=== PATIENT | female | born 2000 | race Two or more races ===

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

== ENCOUNTER 2020-10-06 14:29 | Emergency (ER) | payer SELFPAY ==
[~2020-10-06] VITALS: Ht 160 cm; Wt 63.5 kg
[2020-10-06 14:30] VITALS: BP 109/70
[2020-10-06] MEDS ORDERED: cefTRIAXone SOD 1,000 MG VL IM ONE (16:15)
[2020-10-06] MEDS ORDERED: ONDANSETRON HCL 4 MG/2 ML VIAL IM ONE (16:15)
== END 2020-10-06 18:10 | disposition home or self-care (01) ==
LOC: ER 14:29
DX: K52.9 Noninfective gastroenteritis and colitis, unspecified (principal); J03.90 Acute tonsillitis, unspecified; R11.2 Nausea with vomiting, unspecified; Z20.822 Contact with and (suspected) exposure to COVID-19
CPT/HCPCS: 36415; 71045; 87426; 96372; 99284; J0696; J2405

== ENCOUNTER 2024-01-14 02:12 | Inpatient (IN) | payer OTHER ==
[~2024-01-14] VITALS: Ht 162.6 cm; Wt 63.5 kg
[2024-01-14] MEDS ORDERED: BUTORPHANOL TARTRATE 2 MG/1 ML VIAL IV PRN ×2 (02:30)
[2024-01-14] MEDS ORDERED: LIDOCAINE 2%HCL (LOCAL ANESTH.) INJ 20ML MDV IJ PRN (02:30)
[2024-01-14 03:05] LABS: Basophils # (auto) 0 10 ^3/uL (0-0.2); Basophils % (auto) 0.2 % (0.0-2.0); Eosinophils # (auto) 0 10 ^3/uL (0-0.8); Eosinophils % (auto) 0.6 % (0.0-7.0); Hematocrit 32.6 % (36.0-46.0); Lymphocytes # (auto) 1.2 10 ^3/uL (0.4-5.4); Lymphocytes % (auto) 15.8 % (10.0-50.0); Mean Corpuscular Hemoglobin 30.3 pg (28.0-32.0); Mean Corpuscular Hgb Conc. 33.9 g/dL (32.0-36.0); Mean Corpuscular Volume 89.5 fL (80.0-100.0); Monocytes # (auto) 0.5 10 ^3/uL (0-1.3); Monocytes % (auto) 7.3 % (0.0-12.0); Neutrophils # (auto) 5.6 10 ^3/uL (1.6-8.6); Neutrophils % (auto) 76.1 % (37.0-80.0); Red Blood Cells 3.64 10^6/uL (4.0-5.20); Red Cell Distribution Width 14.3 % (11.8-14.3); White Blood Cell 7.3 10^3/uL (4.4-10.8)
[2024-01-14 03:20] LABS: INR 0.91 (0.9-1.15); Partial Thromboplastin Time 24.7 SEC (24.5-34.5); Prothrombin Time 9.7 sec (9.3-11.8)
[2024-01-14 03:23] LABS: Amphetamine Screen, Urine Neg (NEGATIVE); Barbiturate Scree,Urine Neg (NEGATIVE); Benzodiazephine Screen, Urine Neg (NEGATIVE); Cannabinoid Screen, Urine Pos (NEGATIVE); Cocaine Screen, Urine Neg (NEGATIVE); Opiate Scree,Urine Neg (NEGATIVE); Phencyclidine Screen, Urine Neg (NEGATIVE)
[2024-01-14 03:26] LABS: Urine Amorphous Crystal FEW /hpf (None Seen); Urine Bacteria FEW /hpf (None Seen); Urine Blood Negative /uL (Negative); Urine Clarity Clear (Clear); Urine Color Light-Yellow (Yellow); Urine Protein, UAD Negative (Negative); Urine Specific Gravity 1.013 (1.001-1.035); Urine Urobilinogen Normal (Negative); Urine WBC <1 /hpf (0 - 5)
[2024-01-14 03:28] LABS: Alanine Aminotransferase 10 U/L (7-40); Albumin 3.5 g/dL (3.2-4.8); Alkaline Phosphatase 261 U/L (46-116); Anion Gap 10 (5-15); Aspartate Aminotransferase < 8 U/L (13-40); BUN/Creatinine Ratio 11.1 (10.0-20.0); Blood Urea Nitrogen 7 mg/dL (9-23); Calcium 8.8 mg/dL (8.7-10.4); Carbon Dioxide 22 mmol/L (20-30); Chloride 105 mmol/L (98-107); Glucose 104 mg/dL (74-106); Potassium 3.6 mmol/L (3.5-5.1); Sodium 137 mmol/L (136-145)
[2024-01-14 03:29] LABS: Bilirubin, Total 0.3 mg/dL (0.2-1.0); Total Protein 5.8 g/dL (5.7-8.2)
[2024-01-14] MEDS: LACTATED RINGER'S 1,000 ML IV SCH (03:34)
[2024-01-14] MEDS: PENICILLIN G POT 5MIL/D5 50ML 50 ML IV ONE (03:46)
[2024-01-14] MEDS: ONDANSETRON HCL 4 MG/2 ML VIAL IV ONE (05:35)
[2024-01-14] MEDS: NALBUPHINE HCL 10 MG/1ml INJECTION IV PRN (05:52)
[2024-01-14] MEDS: NALOXONE HCL 0.4 MG/ML VIAL IV ONE (06:30)
[2024-01-14] MEDS ORDERED: PENICILLIN G POTASSIUM 2,500,000 UNITS in D5W 5% 50 ML IV SCH ×2 (06:30→12:30)
[2024-01-14] MEDS: ePHEDrine SULFATE 50 MG/ML AMP IV ONE (06:30)
[2024-01-14] MEDS: ROPIVACAINE HCL 200 ML ONE (07:59)
[2024-01-14] MEDS: LACTATED RINGER'S 1,000 ML IV ONE (08:19)
[2024-01-14] MEDS: PENICILLIN G POTASSIUM 2,500,000 UNITS in D5W 5% 50 ML IV SCH (08:24)
[2024-01-14] MEDS: LACT. RINGERS/OXYTOCIN 20UNITS 1,000 ML IV SCH (08:30)
[2024-01-14] MEDS: DERMOPLAST 60ML BOTTLE TOP PRN (11:21)
[2024-01-14] MEDS: WITCH HAZEL-GLYCERIN PAD TOP PRN (11:21)
[2024-01-14] MEDS: PHISODERM TOP SOLN 240ML BTL TOP PRN (11:21)
[2024-01-14] MEDS: LACT. RINGERS/OXYTOCIN 20UNITS 500 ML IV ONE ×2 (13:37→13:38)
[2024-01-14] MEDS: ONDANSETRON HCL 4 MG/2 ML VIAL IV PRN (13:58)
[2024-01-14] MEDS: ALBUTEROL SULF HFA 90MCG INH 200DOSE IN SCH (14:00)
[2024-01-14] MEDS: ceFAZolin 1GM/50ML 50 ML IV SCH (16:05)
[2024-01-14 19:00] VITALS: BP 115/68; PULSE 93; RESP 16; TEMP 97.3; O2SAT 95
[2024-01-14] MEDS: IBUPROFEN 600 MG TAB PO PRN (20:06)
[2024-01-14 23:00] VITALS: BP 113/64; PULSE 93; RESP 14; TEMP 98.6; O2SAT 94
[2024-01-14] MEDS ORDERED: IBU600T PO (23:42)
[2024-01-14] MEDS ORDERED: DOCU-94 PO (23:42)
[2024-01-14] MEDS ORDERED: FER325T PO (23:42)
[2024-01-14] MEDS ORDERED: PREN-96 PO (23:42)
[2024-01-15] MEDS: DOCUSATE SOD 100 MG CAP PO PRN (00:56)
[2024-01-15] MEDS: ACETAMINOPHEN 325 MG TAB PO PRN (00:57)
[2024-01-15 03:27] VITALS: BP 120/58; PULSE 77; RESP 14; TEMP 98.3; O2SAT 100
[2024-01-15] MEDS ORDERED: ALBUTEROL SULF 2.5 MG/0.5ML(0.5%) NEB SOLN NEB PRN (05:00)
[2024-01-15 06:21] LABS: Basophils # (auto) 0 10 ^3/uL (0-0.2); Basophils % (auto) 0.2 % (0.0-2.0); Eosinophils # (auto) 0 10 ^3/uL (0-0.8); Eosinophils % (auto) 0.3 % (0.0-7.0); Hematocrit 28.2 % (36.0-46.0); Hemoglobin 9.7 g/dL (12.2-16.2); Lymphocytes # (auto) 1.3 10 ^3/uL (0.4-5.4); Lymphocytes % (auto) 13.6 % (10.0-50.0); Mean Corpuscular Hemoglobin 30.8 pg (28.0-32.0); Mean Corpuscular Hgb Conc. 34.4 g/dL (32.0-36.0); Mean Corpuscular Volume 89.5 fL (80.0-100.0); Monocytes # (auto) 0.9 10 ^3/uL (0-1.3); Monocytes % (auto) 9.5 % (0.0-12.0); Neutrophils # (auto) 7.3 10 ^3/uL (1.6-8.6); Neutrophils % (auto) 76.4 % (37.0-80.0); Nucleated Red Blood Cells % 0.1 %; Red Blood Cells 3.15 10^6/uL (4.0-5.20); Red Cell Distribution Width 14.5 % (11.8-14.3); White Blood Cell 9.5 10^3/uL (4.4-10.8)
[2024-01-15 07:00] VITALS: BP 110/69; PULSE 85; RESP 18; TEMP 97.5; O2SAT 96
[2024-01-15 07:06] LABS: RPR Non Reactive (Non Reactive)
[2024-01-15] MEDS: HYDROcodone-ACET 5/325MG TAB PO PRN (08:13)
[2024-01-15] MEDS: MEASLES, MUMPS & RUBELLA VAC(MMRII) 0.5ML SC ONE (09:00)
[2024-01-15 11:00] VITALS: BP 122/76; PULSE 73; RESP 18; TEMP 98; O2SAT 97
[2024-01-15 11:02] VITALS: BP 110/69; PULSE 85; RESP 18; O2SAT 96
[2024-01-15 11:08] VITALS: O2SAT 96
[2024-01-15 15:00] VITALS: BP 125/82; PULSE 75; RESP 18; TEMP 98.1; O2SAT 99
== END 2024-01-15 17:50 | disposition home or self-care (01) | DRG 560 ==
LOC: LDRP 02:12
PROVIDERS: ADMIT Obstetrics & Gynecology; ATTEND Obstetrics & Gynecology
PROC: 10D07Z6 Extraction of Products of Conception, Vacuum, Via Natural or Artificial Opening (ICD-10-PCS; principal; 2024-01-14)
PROC: 0KQM0ZZ Repair Perineum Muscle, Open Approach (ICD-10-PCS; 2024-01-14)
PROC: 0W8NXZZ Division of Female Perineum, External Approach (ICD-10-PCS; 2024-01-14)
PROC: 3E0R3BZ Introduction of Anesthetic Agent into Spinal Canal, Percutaneous Approach (ICD-10-PCS; 2024-01-14)
PROC: 00HU33Z Insertion of Infusion Device into Spinal Canal, Percutaneous Approach (ICD-10-PCS; 2024-01-14)
DX: O48.0 Post-term pregnancy (principal); Z37.0 Single live birth; R71.0 Precipitous drop in hematocrit; J45.909 Unspecified asthma, uncomplicated; Z3A.40 40 weeks gestation of pregnancy; O99.52 Diseases of the respiratory system complicating childbirth; O70.1 Second degree perineal laceration during delivery; Z82.49 Family history of ischemic heart disease and other diseases of the circulatory system; Z83.3 Family history of diabetes mellitus
CPT/HCPCS: 36415; 59025; 59409; 62282; 76805; 80053; 80307; 81001; 85025; 85610; 85730; 86592; 86703; 86803; 86850; 86900; 86901; 94760; 94762; 96360; 96361; 96365; 96366; 96374; 96375; G0378; J2405; J2540; J2590; J7060

== ENCOUNTER 2024-09-13 11:39 | Emergency (ER) | payer MEDICAID, OTHER ==
[~2024-09-13] VITALS: Ht 160 cm; Wt 62.2 kg
[~2024-09-13 11:39] MED LIST: DOCU-94 PO; FER325T PO; IBU600T PO; PREN-96 PO
[2024-09-13 12:01] VITALS: BP 108/65; PULSE 117; RESP 17; TEMP 97.9; O2SAT 96
--- NOTE | 2024-09-13 12:20 | ED.PDOC ---
GI ASSESSMENT HPI Comments 23 year old female presents to the ED with a chief complaint of abdominal pain onset yesterday 15:00. Patient states she began experiencing suprapubic abdominal pain since yesterday, described as a cramping sensation, took Tylenol prior to ED arrival. Patient also noticed urinary urgency with retention. She is unsure if she is , irregular menstrual cycles. Denies any PMHx as well as nausea, vomiting, diarrhea, chest pain, shortness of breath, dizziness, hematuria. No other symptoms or modifying factors present at this time. Chief Complaint: Abdominal Pain Time Seen by MD: 12:14 Primary Care Provider: unknown Reviewed Notes: Medications, Allergies Allergies: Coded Allergies: NO KNOWN ALLERGIES (Unverified , 01/08/15) Home Meds Active Scripts Cephalexin (KEFLEX CAPSULE) 250 Mg Cp, 250 MG PO QID for 5 Days, #20 BOTTLE Prov:VANESSA FRANKS MD 09/13/24 Ferrous Sulfate (FERROUS SULFATE) 325 Mg Tb, 1 TAB PO EOD, #30 TAB 3 Refills Prov:ZIYAD MCDANIEL CNM 01/14/24 Vit W/ Ferrous Fumara ( One Daily) Daily Tab, 1 TAB PO DAILY, #90 TAB 3 Refills Prov:ZIYAD MCDANIEL CNM 01/14/24 Docusate Sodium (Colace) 100 Mg Cap, 1 CAP PO BID PRN, #60 CAP 2 Refills Prov:ZIYAD MCDANIEL CNM 01/14/24 Ibuprofen Micronized (MOTRIN TABLET) 600 Mg Tb, 600 MG PO Q6HP PRN for 20 Days, #80 TAB Prov:ZIYAD MCDANIEL CNM 01/14/24 Information Source: Patient Mode of Arrival: Ambulatory Timing: Days Duration: Since onset Prehospital treatment: Pain Meds Quality: Cramping Vomitus: None Severity: Moderate Recent: None Recent Hx of: None Pain Location: Suprapubic Modifying Factors: Nothing Associated sign and symptoms: Abdominal Pain Past Medical History PAST MEDICAL HISTORY: Denies Surgical History: Denies all surgeries DOMESTIC TECHNICIAN History: No Pertinent DOMESTIC TECHNICIAN History Family History Family History: No family hx of HTN, Unobtainable Social History Smoker: Non-Smoker Alcohol: Denies ETOH Use Drugs: Denies Drug Use Lives In: Home Constitutional: denies: chills, diaphoresis, fatigue, fever, malaise, sweats, weakness, others EENTM: denies: blurred vision, double vision, ear bleeding, ear discharge, ear drainage, ear pain, ear ringing, eye pain, eye redness, hearing loss, mouth pain, mouth swelling, nasal discharge, nose bleeding, nose congestion, nose pain, photophobia, tearing, throat pain, throat swelling, voice changes, others Respiratory: denies: cough, hemoptysis, orthopnea, SOB at rest, shortness of breath, SOB with excertion, stridor, wheezing, others Cardiovascular: denies: chest pain, dizzy spells, diaphoresis, Dyspnea on exertion, edema, irregular heart beat, left arm pain, lightheadedness, palpitations, PND, syncope, others Gastrointestinal: reports: abdominal pain; denies: abdomen distended, blood streaked bowels, constipated, diarrhea, dysphagia, difficulty swallowing, hematemesis, melena, nausea, poor appetite, poor fluid intake, rectal bleeding, rectal pain, vomiting, others Genitourinary: reports: urgency, others (retention); denies: abnormal vagina bleeding, burning, dyspareunia, dysuria, flank pain, frequency, hematuria, incontinence, pain, , vagina discharge Neurological: denies: dizziness, fainting, headache, left sided numbness, left sided weakness, numbness, paresthesia, pre-existing deficit, right sided numbness, right sided weakness, seizure, speech problems, tingling, tremors, weakness, others Musculoskeletal: denies: back pain, gout, joint pain, joint swelling, muscle pain, muscle stiffness, neck pain, others Integumetry: denies: bruises, change in color, change in hair/nails, dryness, laceration, lesions, lumps, rash, wounds, others Allergic/Immunocompromised: denies: Difficulty Healing, Frequent Infections, Hives, Itching, others Hematologic/Lymphatic: denies: anemia, blood clots, easy bleeding, easy bruising, swollen glands, others Endocrine: denies: excessive hunger, excessive sweating, excessive thirst, excessive urination, flushing, intolerance to cold, intolerance to heat, unexplained weight gain, unexplained weight loss, others Psychiatric: denies: anxiety, bipolar disorder, depression, hopeless, panic disorder, schizophrenia, sleepless, suicidal, others All Other Systems: Reviewed and Negative Physical Exam General Appearance: Moderate Distress, Normal HEENT: Normal ENT Inspection, Pharynx Normal, TMs Normal Neck: Full Range of Motion, Non-Tender, Normal, Normal Inspection Respiratory: Chest Non-Tender, Lungs Clear, No Accessory Muscle Use, No Respiratory Distress, Normal Breath Sounds Cardiovascular: No Edema, No JVD, No Murmur, No Gallop, Normal Peripheral Pulses, Regular Rate/Rhythm Breast Exam: Deferred Gastrointestinal: No Organomegaly, Non Tender, No Pulsatile Mass, Normal Bowel Sounds, Soft Genitalia: Deferred Pelvic: Deferred Rectal: Deferred Extremities: No calf tenderness, Normal capillary refill, Normal inspection, Normal range of motion, Non-tender, No pedal edema Musculoskeletal : Apperance: Normal Neurologic: Alert, jewelry internship II-XII nml as Tested, No Motor Deficits, Normal Affect, Normal Mood, No Sensory Deficits Cerebellar Function: Normal Reflexes: Normal Skin: Dry, Normal Color, Warm Peripheral Pulses: 3+ Radial (R), 3+ Radial (L) Lymphatic: No Adenopathy Was a procedure done? Was a procedure done?: No GI differential Dx Differential Diagnosis: Constipation, Diverticular disease, Esophagitis, Gastritis/PUD, Gastroenteritis X-Ray, Labs, Meds, VS Vital Signs Date Time Temp Pulse Resp B/P (MAP) Pulse Ox O2 Delivery O2 Flow Rate FiO2 09/13/24 12:01 97.9 117 17 108/65 (79) 96 97.9 Lab Test 09/13/24 13:01 09/13/24 11:56 Range/Units White Blood Count 5.2 4.4-10.8 10^3/uL Red Blood Count 4.49 4.0-5.20 10^6/uL Hemoglobin 13.6 12.2-16.2 g/dL Hematocrit 41.1 36.0-46.0 % Mean Corpuscular Volume 91.5 80.0-100.0 fL Mean Corpuscular Hemoglobin 30.3 28.0-32.0 pg Mean Corpuscular Hemoglobin Concent 33.1 32.0-36.0 g/dL Red Cell Distribution Width 14.4 H 11.8-14.3 % Platelet Count 335 140-450 10^3/uL Mean Platelet Volume 7.4 6.9-10.8 fL Neutrophils (%) (Auto) 65.4 37.0-80.0 % Lymphocytes (%) (Auto) 23.7 10.0-50.0 % Monocytes (%) (Auto) 8.7 0.0-12.0 % Eosinophils (%) (Auto) 1.9 0.0-7.0 % Basophils (%) (Auto) 0.3 0.0-2.0 % Neutrophils # (Auto) 3.4 1.6-8.6 10 ^3/uL Lymphocytes # (Auto) 1.2 0.4-5.4 10 ^3/uL Monocytes # (Auto) 0.5 0-1.3 10 ^3/uL Eosinophils # (Auto) 0.1 0-0.8 10 ^3/uL Basophils # (Auto) 0 0-0.2 10 ^3/uL Nucleated Red Blood Cells 0.0 % Urine Color Light-yellow Yellow Urine Clarity Clear Clear Urine pH 7.0 5.0-9.0 Urine Specific [place] 1.039 H 1.001-1.035 Urine Protein Trace H Negative Urine Ketones Negative Negative Urine Blood Negative Negative /uL Urine Nitrite Negative Negative Urine Bilirubin Negative Negative Urine Urobilinogen Normal Negative mg/dL Urine Leukocyte Esterase Negative Negative /uL Urine RBC 1 0 - 4 /hpf Urine Microscopic WBC 3 0-5 /HPF Urine Squamous Epithelial Cells Mod <5 /hpf Urine Bacteria Few H None Seen /hpf Urine Mucus Few None Seen Urine Glucose Normal Normal mg/dL Patient alert. Complaining of suprapubic discomfort. Vitals stable. No sign of distress. Does have moderate amount of bacteria in her urine. Possible early urinary tract infection. Saturation pristine on room air. No leg swelling. No shortness a breath. She is anxious. No chest pain. CT scan of the abdomen was not done because physical examination was pristine. WBC within normal limits. Hemoglobin within normal limits. Was given prescription of Keflex antibiotic. Was told to follow up with her primary care physician. Was told to come back if there is any problem. Time of 1ST Reevaluation: 12:44 Reevaluation 1ST: Unchanged Patient Education/Counseling: Diagnosis, Treatment, Prognosis Family Education/Counseling: No Family Present Departure 1 Departure Time of Disposition: 13:33 Impression: Primary Impression: Urinary tract infection Qualified Codes: N30.00 - Acute cystitis without hematuria Disposition: 01 HOME / SELF CARE / HOMELESS Condition: Good e-Prescriptions Cephalexin (KEFLEX CAPSULE) 250 Mg Cp 250 MG PO QID for 5 Days, #20 BOTTLE Prov: VANESSA FRANKS MD 09/13/24 Discharged With: Self Critical Care Note Critical Care Time?: No Stability Stability form required: No Heart Score Heart Score: Heart Score Response (Comments) Value History N/A 0 EKG N/A 0 Age N/A 0 Risk Factors N/A 0 Troponin N/A 0 Total 0 I personally scribed for VANESSA FRANKS MD ([email or web address]) on 09/13/24 at 12:20. Electronically submitted by Felecia Charlton ([email or web address]). VANESSA FRANKS MD Sep 13, 2024 12:20
[2024-09-13 13:15] LABS: Urine Bacteria FEW /hpf (None Seen); Urine Blood Negative /uL (Negative); Urine Clarity Clear (Clear); Urine Color Light-Yellow (Yellow); Urine Mucus FEW (None Seen); Urine Protein, UAD TRACE (Negative); Urine Specific Gravity 1.039 (1.001-1.035); Urine Squamous Epithelial Cell MOD /hpf (<5); Urine Urobilinogen Normal (Negative); Urine WBC 3 /HPF (0-5)
[2024-09-13 13:31] LABS: Basophils # (auto) 0 10 ^3/uL (0-0.2); Basophils % (auto) 0.3 % (0.0-2.0); Eosinophils # (auto) 0.1 10 ^3/uL (0-0.8); Eosinophils % (auto) 1.9 % (0.0-7.0); Hematocrit 41.1 % (36.0-46.0); Hemoglobin 13.6 g/dL (12.2-16.2); Lymphocytes # (auto) 1.2 10 ^3/uL (0.4-5.4); Lymphocytes % (auto) 23.7 % (10.0-50.0); Mean Corpuscular Hemoglobin 30.3 pg (28.0-32.0); Mean Corpuscular Hgb Conc. 33.1 g/dL (32.0-36.0); Mean Corpuscular Volume 91.5 fL (80.0-100.0); Monocytes # (auto) 0.5 10 ^3/uL (0-1.3); Monocytes % (auto) 8.7 % (0.0-12.0); Neutrophils # (auto) 3.4 10 ^3/uL (1.6-8.6); Neutrophils % (auto) 65.4 % (37.0-80.0); Platelet Count (auto) 335 10^3/uL (140-450); Red Blood Cells 4.49 10^6/uL (4.0-5.20); Red Cell Distribution Width 14.4 % (11.8-14.3); White Blood Cell 5.2 10^3/uL (4.4-10.8)
[2024-09-13] MEDS ORDERED: CEPH250C PO (13:34)
== END 2024-09-13 14:15 | disposition home or self-care (01) ==
LOC: ER 11:39
DX: N39.0 Urinary tract infection, site not specified (principal); Z79.899 Other long term (current) drug therapy
CPT/HCPCS: 36415; 81001; 85025